=== PATIENT | female | born 2000 | race Caucasian/White ===

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

== ENCOUNTER 2019-06-11 18:43 | Emergency (ER) | payer MEDICAID ==
[~2019-06-11] VITALS: Ht 154.9 cm; Wt 81.6 kg
[2019-06-11 18:59] VITALS: BP 123/79
[2019-06-11 19:43] LABS: Urine Bacteria FEW /hpf (None Seen); Urine Blood Negative /uL (Negative); Urine Mucus FEW (None Seen); Urine Specific Gravity 1.026 (1.001-1.035); Urine WBC 112 /hpf (0 - 5)
[2019-06-12] MEDS ORDERED: IBUPROFEN 800 MG TAB PO ONE (00:15)
== END 2019-06-12 00:10 | disposition home or self-care (01) ==
LOC: ER 18:47
DX: S93.601A Unspecified sprain of right foot, initial encounter (principal); N39.0 Urinary tract infection, site not specified; Z88.6 Allergy status to analgesic agent; W22.8XXA Striking against or struck by other objects, initial encounter; Y93.89 Activity, other specified; Y99.8 Other external cause status; Y92.89 Other specified places as the place of occurrence of the external cause
CPT/HCPCS: 73630; 81001; 81025